=== PATIENT | male | born 1950 | race Caucasian/White ===

== ENCOUNTER 2017-10-19 19:07 | Emergency (ER) | payer BC, MEDICARE ==
[2017-10-19 19:15] VITALS: BP 138/80
[2017-10-19 19:30] LABS: BILIRUBIN,URINE NEGATIVE (NEGATIVE); CLARITY,URINE CLEAR (CLEAR); GLUCOSE, URINE (UA) NEGATIVE (NEGATIVE); KETONES,URINE (UA) NEGATIVE (NEGATIVE); LEUKOCYTE ESTERASE, URINE TRACE (NEGATIVE); NITRITE,URINE NEGATIVE (NEGATIVE); OCCULT BLOOD,URINE MODERATE (NEGATIVE); PROTEIN,URINE NEGATIVE (NEGATIVE); UROBILINOGEN,URINE 0.2 (NORMAL) E.U./dL (NORMAL)
[2017-10-19 19:42] LABS: WBC CLUMPS,URINE PRESENT
[2017-10-19 19:43] LABS: BACTERIA,URINE Rare /HPF (None Seen); MUCUS,URINE Few Strands; SQUAMOUS EPITHELIAL CELL,UR RARE Squamous (<= Few)
[2017-10-19] MEDS ORDERED: cefTRIAXone 1 GM VIAL IM STA (20:37)
[2017-10-19] MEDS ORDERED: LIDOCAINE 1% 2 ML VIAL SUBQ ONE (20:37)
[2017-10-19] MEDS ORDERED: LIDOCAINE 2% URO-JET 5 ML SYRINGE UR STA (20:38)
--- NOTE | 2017-10-19 20:40 | ED Physician Documentation ---
History of Present Illness - Stated complaint Stated Complaint: UNABLE TO URINATE/CATHETER - Chief complaint Chief Complaint: Abd Pain - History obtained from History obtained from: Patient - History of Present Illness Timing: Today Pain level max: 4 Pain level now: 4 Improved by: elaine Worsened by: removing elaine - Additonal information Additional information: Patient is a 67-year-old male with a history of BPH who presents after being treated with a Elaine catheter for the past week for urinary retention. He was started on Flomax and his doctor removed the catheter today. Has had trouble urinating since that time. Has had some low back pain over the past few days, mild 1-2 out of 10. He is requesting the catheter be replaced. The catheter was removed early as there was a blood clot in the catheter. No fevers. No vomiting. No pain with bowel movements Review of Systems Constitutional: denies: Fever, Chills Nose: denies: Rhinorrhea / runny nose, Congestion Respiratory: denies: Cough GI: denies: Vomiting, Diarrhea Skin: denies: Rash Musculoskeletal: denies: Neck pain Neurologic: denies: Focal weakness, Numbness PD PAST MEDICAL HISTORY - Past Medical History Past Medical History: Yes : Benign prostate hypertrophy - Present Medications Home Medications: Ambulatory Orders Medication Instructions Recorded Confirmed Cephalexin [Keflex] 500 mg PO Q6H #28 capsule 10/19/17 - Living Situation Living Situation: reports: With family Living Arrangement: reports: At home - Social History Does the pt smoke?: No Does the pt have substance abuse?: No - Family History Family history: reports: Non contributory PD ED PE NORMAL - Vitals Vital signs reviewed: Yes - General General: Alert and oriented X 3, No acute distress - HEENT HEENT: Moist mucous membranes - Neck Neck: Supple, no meningeal sign - Cardiac Cardiac: RRR - Respiratory Respiratory: No respiratory distress, Clear bilaterally - Abdomen Abdomen: Soft, Non tender, Non distended - Back Back: No CVA TTP, No spinal TTP - Derm Derm: Warm and dry - Neuro Neuro: Alert and oriented X 3 - Psych Psych: Normal mood, Normal affect Results - Vitals Vitals: Vital Signs - 24 hr 10/19/17 19:11 Temperature 36.2 C L Heart Rate 97 Respiratory 16 Rate Blood Pressure 138/80 H O2 Saturation 97 Oxygen O2 Source Room air - Labs Labs: Laboratory Tests 10/19/17 19:25 Urine Color YELLOW Urine Clarity CLEAR Urine pH 6.0 Ur Specific [place] <=1.005 Urine Protein NEGATIVE Urine Glucose (UA) NEGATIVE Urine Ketones NEGATIVE Urine Occult Blood MODERATE H Urine Nitrite NEGATIVE Urine Bilirubin NEGATIVE Urine Urobilinogen 0.2 (NORMAL) Ur Leukocyte Esterase TRACE H Urine RBC 11-25 H Urine WBC >25 H Urine WBC Clumps PRESENT Ur Squamous Epith Cells RARE Squamous Urine Bacteria Rare Urine Mucus Few Strands Ur Microscopic Review INDICATED Urine Culture Comments INDICATED PD MEDICAL DECISION MAKING - ED course Complexity details: reviewed results, re-evaluated patient, considered differential, d/w patient ED course: Elaine catheter was replaced. Patient tolerated well. We will leave this in place until he sees his doctor. Urinalysis is concerning for a urinary tract infection and will place him on antibiotics for this. Patient counseled regarding signs and symptoms for which I believe and urgent re-evaluation would be necessary. Patient with good understanding of and agreement to plan and is comfortable going home at this time This document was made in part using voice recognition software. While efforts are made to proofread this document, sound alike and grammatical errors may occur. - Sepsis Event Vital Signs: Vital Signs - 24 hr 10/19/17 19:11 Temperature 36.2 C L Heart Rate 97 Respiratory 16 Rate Blood Pressure 138/80 H O2 Saturation 97 Oxygen O2 Source Room air Departure - Departure Disposition: 01 Home, Self Care Clinical Impression: Urinary retention Urinary tract infection Qualifiers: Urinary tract infection type: acute cystitis Hematuria presence: without hematuria Qualified Code(s): N30.00 - Acute cystitis without hematuria Condition: Good Instructions: ED UTI Cystitis Male Follow-Up: Benitez Cruz MD [Primary Care Provider] - Prescriptions: Cephalexin [Keflex] 500 mg PO Q6H #28 capsule Comments: Take all antibiotics until gone. Return if you worsen. Discharge Date/Time: 10/19/17 21:08
== END 2017-10-19 21:08 | disposition home or self-care (01) ==
LOC: ED 19:07
DX: N40.1 Benign prostatic hyperplasia with lower urinary tract symptoms (principal); R33.8 Other retention of urine; N30.00 Acute cystitis without hematuria; Z96.0 Presence of urogenital implants
CPT/HCPCS: 51702; 81001; 81003; 87086; 96372; 99283

== ENCOUNTER 2017-10-28 19:50 | Emergency (ER) | payer MEDICARE ==
[2017-10-28 20:06] VITALS: BP 112/72
[2017-10-28] MEDS ORDERED: LIDOCAINE 2% URO-JET 5 ML SYRINGE UR STA (20:08)
[2017-10-28 20:38] LABS: BILIRUBIN,URINE NEGATIVE (NEGATIVE); GLUCOSE, URINE (UA) NEGATIVE (NEGATIVE); KETONES,URINE (UA) NEGATIVE (NEGATIVE); LEUKOCYTE ESTERASE, URINE NEGATIVE (NEGATIVE); NITRITE,URINE NEGATIVE (NEGATIVE); OCCULT BLOOD,URINE LARGE (NEGATIVE); PROTEIN,URINE NEGATIVE (NEGATIVE); UROBILINOGEN,URINE 0.2 (NORMAL) E.U./dL (NORMAL)
[2017-10-28 20:47] LABS: CLARITY,URINE CLEAR (CLEAR)
--- NOTE | 2017-10-28 20:51 | ED Physician Documentation ---
PD HPI MALE - Stated complaint Stated Complaint: CANNOT URINATE - Chief complaint Chief Complaint: Abd Pain - History obtained from History obtained from: Patient, Family - History of Present Illness Associated symptoms: Unable to urinate PD HPI MALE CONTRIB FACTORS: Indwelling catheter Similar symptoms before: Diagnosis Recently seen: Clinic, Emergency Dept - Additional information Additional information: 67-year-old male with a recent issue of urinary retention, the patient had a Adam catheter placed. The patient completed a course of antibiotics for a presumed urinary tract infection. Today, the patient followed up with his primary care physician who remove the Adam catheter. Since, having the Adma catheter removed the patient's only been able to dribble out small amounts of urine. The patient reports increasing suprapubic pain. The patient denies fever, flank pain, nausea, vomiting or hematuria. Symptoms are described as moderate. No other associated symptoms. Review of Systems Constitutional: denies: Fever, Chills Cardiac: denies: Chest pain / pressure Respiratory: denies: Dyspnea GI: reports: Abdominal Pain (Suprapubic) : reports: Unable to Void. denies: Hematuria, Discharge Skin: denies: Rash Musculoskeletal: denies: Back pain Neurologic: denies: Generalized weakness Immunocompromised: denies: Chemotherapy PD PAST MEDICAL HISTORY - Past Medical History : Benign prostate hypertrophy - Present Medications Home Medications: Ambulatory Orders Medication Instructions Recorded Confirmed Sulfamethox/Trimeth 800/160 1 each PO BID 10/28/17 10/28/17 [Bactrim Ds 800/160] - Allergies Allergies/Adverse Reactions: Allergies Allergy/AdvReac Type Severity Reaction Status Date / Time No Known Drug Allergies Allergy Verified 10/28/17 19:56 - Social History Does the pt smoke?: No Smoking Status: Never smoker Does the pt drink ETOH?: No Does the pt have substance abuse?: No - Immunizations Immunizations are current?: No PD ED PE NORMAL - General General: Alert and oriented X 3, No acute distress - HEENT HEENT: Atraumatic, PERRL, EOMI, Ears normal - Neck Neck: Supple, no meningeal sign - Cardiac Cardiac: RRR - Respiratory Respiratory: No respiratory distress - Abdomen Abdomen: Normal bowel sounds, Non tender (The patient had no tenderness on examination, this was performed after the Adam catheter was inserted), Non distended - Derm Derm: Normal color - Extremities Extremities: No deformity - Neuro Neuro: Alert and oriented X 3, Normal speech - Psych Psych: Normal affect Results - Vitals Vitals: Vital Signs - 24 hr 10/28/17 19:53 Temperature 36.2 C L Heart Rate 90 Respiratory 18 Rate Blood Pressure 112/72 O2 Saturation 97 Oxygen O2 Source Room air - Labs Labs: Laboratory Tests 10/28/17 20:30 Urine Color YELLOW Urine Clarity CLEAR Urine pH 6.0 Ur Specific [place] <=1.005 Urine Protein NEGATIVE Urine Glucose (UA) NEGATIVE Urine Ketones NEGATIVE Urine Occult Blood LARGE H Urine Nitrite NEGATIVE Urine Bilirubin NEGATIVE Urine Urobilinogen 0.2 (NORMAL) Ur Leukocyte Esterase NEGATIVE Ur Microscopic Review INDICATED Urine Culture Comments Not Reportable PD MEDICAL DECISION MAKING - ED course ED course: A Adam catheter was reinserted which drained the patient's bladder. Presently , the patient's symptoms have resolved and he feels much improved. The patient was started on Bactrim today by his primary care physician. Currently, the patient's symptoms are improved and he appears appropriate for discharge and ongoing outpatient management. The patient has [employer] insurance and I recommended following up with primary care for a referral to outpatient urology. The patient understands and agrees to the plan. I discussed warning signs and recommended returning to the emergency department immediately for worsening or any concerns - Sepsis Event Vital Signs: Vital Signs - 24 hr 10/28/17 19:53 Temperature 36.2 C L Heart Rate 90 Respiratory 18 Rate Blood Pressure 112/72 O2 Saturation 97 Oxygen O2 Source Room air Departure - Departure Disposition: 01 Home, Self Care Clinical Impression: Urinary retention Condition: Good Instructions: ED Catheter Care Kia, ALAINA Retention Urinary Male Follow-Up: Juan José Aguirre MD [Primary Care Provider] - Within 3 Days (Please ask your primary care physician to arrange for an outpatient urology referral) Comments: Please return to the emergency department for worsening symptoms or any concerns
[2017-10-28 21:00] LABS: BACTERIA,URINE None Seen /HPF (None Seen); SQUAMOUS EPITHELIAL CELL,UR NONE SEEN (<= Few)
== END 2017-10-28 21:12 | disposition home or self-care (01) ==
LOC: ED 19:50
DX: N40.1 Benign prostatic hyperplasia with lower urinary tract symptoms (principal); R33.8 Other retention of urine
CPT/HCPCS: 51702; 51798; 81001; 81003; 87086; 99283

== ENCOUNTER 2019-01-31 07:42 | Outpatient (CLI) | payer MEDICARE ==
--- NOTE | 2019-01-31 14:54 | Ultrasound Report ---
Reason: ABDOMINAL AORTIC ANEURYSM SCR Procedure Date: 01/31/2019 Accession Number: [id number] / [id number] Procedure: US - Aorta Screening CPT Code: Final Report FULL RESULT: EXAM: AORTIC DOPPLER ULTRASOUND EXAM DATE: 01/31/2019 07:48 AM. CLINICAL HISTORY: Abdominal aortic aneurysm screening. COMPARISON: None. TECHNIQUE: Real-time sonographic imaging of retroperitoneal vascular structures, including color-flow, Doppler flow and spectral analysis was performed by the home teaching grades 9 thru 12 teacher. Multiple promotional representative static images were saved for review. FINDINGS: Aorta: The abdominal aorta was adequately visualized. No evidence for abdominal aortic aneurysm. Aorta: Proximal: Sagittal AP: 2.5 cm as measured by the radiologist. Mid: Transverse: 2.2 x 2.2 cm. Distal: Transverse: 2.0 x 2.1 cm. Iliacs: Right Iliac: Transverse: 1.3 x 1.3 cm. Left Iliac: Transverse: 1.2 x 1.2 cm. Iliac Vessels: The visualized proximal common iliac arteries are normal in caliber. Other: A mild amount of atherosclerotic plaque is noted. IMPRESSION: No abdominal aortic aneurysm. [facility]
== END 2019-01-31 07:43 | disposition home or self-care (01) ==
LOC: DI 07:42
PROVIDERS: ATTEND Family Medicine
DX: Z13.6 Encounter for screening for cardiovascular disorders (principal)
CPT/HCPCS: 76706

== ENCOUNTER 2019-02-19 08:37 | Outpatient (CLI) | payer MEDICARE ==
--- NOTE | 2019-02-20 07:55 | Ultrasound Report ---
Reason: CERVICAL LYMPHADENOPATHY Procedure Date: 02/19/2019 Accession Number: [id number] / [id number] Procedure: US - Head or Neck Soft Tissue CPT Code: Final Report FULL RESULT: EXAM: NECK ULTRASOUND EXAM DATE: 02/19/2019 08:50 AM. CLINICAL HISTORY: CERVICAL LYMPHADENOPATHY. COMPARISON: None. TECHNIQUE: Real-time sonographic imaging was performed by the senior manufacturing supervisor utilizing color-flow. Multiple customer support representative static images were saved for review. FINDINGS: The area of interest along the right mandible is heterogeneous submandibular gland. Submandibular gland is 3.8 x 1.3 x 3.1 cm without focal mass, no ductal dilatation, no stones.. IMPRESSION: 1. Area of interest is right submandibular gland which is heterogeneous but no focal mass identified. Consider further evaluation with CT scan. [facility]
== END 2019-02-19 08:38 | disposition home or self-care (01) ==
LOC: DI 08:37
PROVIDERS: ATTEND Nurse Practitioner Family
DX: R59.0 Localized enlarged lymph nodes (principal)
CPT/HCPCS: 76536

== ENCOUNTER 2020-10-09 07:09 | Outpatient (CLI) | payer MEDICARE ==
[2020-10-09 15:22] LABS: PSA TOTAL 9.13 ng/mL (0.000-2.000)
[2020-10-09 15:35] LABS: CHOL/HDL RATIO 4.6 (<5.0); CHOLESTEROL 199 mg/dL; HDL CHOLESTEROL 43 mg/dL; LDL CHOLESTEROL,CALCULATED 136 mg/dL; LDL/HDL RATIO 3.2 (<3.6); TRIGLYCERIDES 102 mg/dL; VLDL CHOLESTEROL 20 mg/dL
[2020-10-09 16:07] LABS: PSA FREE 1.26 ng/mL (0.16-2.81)
[2020-10-10 16:26] LABS: HIV AG/AB 4TH GEN NON-REACTIVE (NON-REACTIVE)
== END 2020-10-09 07:10 | disposition home or self-care (01) ==
LOC: LAB.S 07:09
PROVIDERS: ATTEND Nurse Practitioner Family
DX: N40.1 Benign prostatic hyperplasia with lower urinary tract symptoms (principal); Z11.4 Encounter for screening for human immunodeficiency virus [HIV]; Z13.220 Encounter for screening for lipoid disorders
CPT/HCPCS: 36415; 80061; 84153; 84154; G0475; 83721; 87389